=== PATIENT | female | born 1990 | race Caucasian/White ===

== ENCOUNTER 2017-04-04 12:28 | Emergency (ER) | payer OTHER ==
[~2017-04-04] VITALS: Ht 162.6 cm; Wt 107.0 kg
[2017-04-04 13:24] VITALS: BP 113/74
== END 2017-04-04 18:51 | disposition left against medical advice (07) ==
LOC: ER 17:52
DX: O26.892 Other specified pregnancy related conditions, second trimester (principal); R10.9 Unspecified abdominal pain; O21.2 Late vomiting of pregnancy; Z53.21 Procedure and treatment not carried out due to patient leaving prior to being seen by health care provider